=== PATIENT | male | born 1980 | race Caucasian/White ===

== ENCOUNTER 2016-06-01 11:39 | Emergency (ER) | payer OTHER ==
--- NOTE | 2016-06-01 12:23 | ED Physician Documentation ---
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 now para rectal discomfort epigastric pain disstress palp tenderness. Onset: hours (2) Timing: sudden onset Severity: mild, moderate - Associated Symptoms Description of Stools: constipation. denies: dark stools Abdominal Pain: cramping, aching, burning, mild, epigastric Other Related Symptoms: nausea, back pain - ROS CONST: no problems (as aforementioned) CVS/RESP: none GI/: problems urinating, other (urinary and fecal incontinence but occ constipation--wears depends) - PAST HX Past History: other (quad/paraplegia crush injury dec 2015--tree) - SOCIAL HX Smoking History: less than 1 pack/day Alcohol Use: none Drug Use: none - FAMILY HX Family History: none - VITAL SIGNS Vital Signs: Vital Signs Temp Pulse Resp BP Pulse Ox 97.7 F 83 16 128/88 97 06/01/16 11:58 06/01/16 11:58 06/01/16 11:58 06/01/16 11:58 06/01/16 11:58 - REVIEWED ASSESSMENTS Nursing Assessment Reviewed: Yes Vitals Reviewed: Yes ED Results Lab/Radiology - Radiology Radiology Impressions: abd\=xs feces asc trans and upper descending colon.(paraplegic). cxr=wnl - Orders Orders: ED Orders Category Date Time Status ABDOMEN WITH PA CHEST [ABD SERIES PA CHEST] [RAD] Stat Exams 06/01/16 Ordered Magnesium Hydroxide/Al Hydrox [Maalox] Med 06/01/16 12:20 Discontinued 60 ml PO NOW ONE Abdominal Pain Physical Exam - Physical Exam General Appearance: mild distress EENT: eye inspection normal NECK: normal inspection, thyroid normal, supple RESPIRATORY: no resp distress, chest non-tender, breath sounds normal CVS: reg rate & rhythm, heart sounds normal ABDOMEN: soft, tenderness (epigastric and suprapubic), abnormal bowel sounds RECTAL: normal rectal tone, other (no rectal prolapse found w exam finger-- marked tenderness on exam) SKIN: warm/dry, normal color. No: cyanosis, diaphoresis, jaundice EXTREMITIES: non-tender, normal range of motion (now walks w/significant limitation) NEURO: oriented X3, CN's nml as tested, mood/affect nml Vital Signs: Vital Signs Temp Pulse Resp BP Pulse Ox 97.7 F 83 16 128/88 97 06/01/16 11:58 06/01/16 11:58 06/01/16 11:58 06/01/16 11:58 06/01/16 11:58 Discharge Clincal Impression: ckonstipation w/hx rectal prolapse, paraplegic, chronic consstipation dt narcotic use Comments: pt may need surgical evaluation if prolapse recurs Condition: Good Disposition: 01 HOME, SELF-CARE Decision to Admit: NO Decision Time: 13:07
--- NOTE | 2016-06-01 18:29 | Diagnostic Imaging Report ---
[facility] [address] [facility].[address] [id number] Report Submission Date: Jun 01, 2016 1:06:30 PM MANAGER SOLAR Patient Study Name: NICOLE RUVALCABA Date: Jun 01, 2016 12:29:02 PM MANAGER SOLAR Modality Type: CR Gender: M Description: CHEST,ABDOMEN : 84 Institution: [facility] Physician: JAVI Johnston DO Obstructive series with chest x-ray CLINICAL HISTORY: Epigastric pain and constipation. Rectal prolapse. FINDINGS: Examination of the chest in single upright view demonstrates the lungs to be clear. Cardiovascular and mediastinal silhouettes are within normal limits. Thoracic spinal fusion hardware is demonstrated. Examination of the abdomen in supine and upright views demonstrates gas and stool in the colon. Psoas margins are well defined and the properitoneal fat lines are preserved. The visualized visceral silhouettes are within normal limits. There are no unusual intra- abdominal calcifications. IMPRESSION: Postop thoracic spinal stabilization. Normal bowel gas pattern. Electronically signed on Jun 01, 2016 1:06:30 PM MANAGER SOLAR by: Jagjit BUCIO
[2016-06-01] MEDS: MAGNESIUM HYDROXIDE/AL HYDROX 30 ML UDC PO ONE (19:18)
[2016-06-01 19:30] VITALS: BP 100/74
== END 2016-06-01 14:00 | disposition home or self-care (01) ==
LOC: ED 11:39
DX: K59.00 Constipation, unspecified (principal); K62.3 Rectal prolapse; G82.20 Paraplegia, unspecified
CPT/HCPCS: 74022; 99283

== ENCOUNTER 2016-06-06 15:05 | Emergency (ER) | payer OTHER ==
[2016-06-06 16:19] LABS: BASOPHILS % 0.4 (0.0-1.5); EOSINOPHILS % 1.7 % (0.0-6.8); LYMPHOCYTES # 1.3 # k/uL (0.6-4.0); MEAN CORPUSCULAR HEMOGLOBIN 29.2 pg (28.0-34.0); MONOCYTES # 0.3 # k/uL (0.0-0.9); MONOCYTES % 5.1 % (0.0-11.0); NEUTROPHILS # 4.2 # k/uL (1.4-7.7)
[2016-06-06 16:34] LABS: eGFR (African) > 60; eGFR (Non-African) > 60
--- NOTE | 2016-06-06 18:03 | ED Physician Documentation ---
GI Bleed - HISTORIAN Historian: patient, spouse - HPI Stated Complaint: constipation Chief Complaint: Rectal Pain Onset: days ago (7) Further Comments: yes (35 yo male presents with concern of constipation. has not had a good BM in 3 days. No fever/chills. Has the urge to have a BM but nothing productive happens. Reports he had a rectal prolapse 1 week ago that was manually reduced in the ER.) - Associated Symptoms Abdominal Pain: none - ROS CONST: no problems - PAST HX Past History: denies: bleeding disorder Allergies/Adverse Reactions: Allergies Allergy/AdvReac Type Severity Reaction Status Date / Time Penicillins Allergy Intermediate Hives Verified 06/01/16 13:13 - SOCIAL HX Smoking History: non-smoker - FAMILY HX Family History: none - VITAL SIGNS Vital Signs: Vital Signs Temp Pulse Resp BP Pulse Ox 98.1 F 101 H 16 112/77 97 06/06/16 15:10 06/06/16 15:10 06/06/16 15:10 06/06/16 15:10 06/06/16 15:10 - REVIEWED ASSESSMENTS Nursing Assessment Reviewed: Yes Vitals Reviewed: Yes ED Results Lab/Radiology - Lab Results Lab Results: Lab Results 06/06/16 06/06/16 16:15 16:15 WBC 6.00 K/ul K/ul (4.00-12.00) RBC 5.02 M/ul M/ul (3.90-5.20) Hgb 14.7 g/dL g/dL (12.0-18.0) Hct 44.5 % % (37.0-53.0) MCV 88.6 fl fl (80.0-100.0) MCH 29.2 pg pg (28.0-34.0) MCHC 33.0 g/dL g/dL (30.0-36.0) RDW 14.1 % % (11.3-14.3) Plt Count 250 K/mm3 K/mm3 (130-400) Neut % (Auto) 69.6 % % (39.0-79.0) Lymph % (Auto) 22.2 % % (16.0-50.0) [place] % (Auto) 5.1 % % (0.0-11.0) Eos % (Auto) 1.7 % % (0.0-6.8) Baso % (Auto) 0.4 (0.0-1.5) Neut # 4.2 # k/uL # k/uL (1.4-7.7) Lymph # 1.3 # k/uL # k/uL (0.6-4.0) [place] # 0.3 # k/uL # k/uL (0.0-0.9) Eos # 0.1 # k/uL # k/uL (0.0-0.6) Baso # 0.0 # k/uL # k/uL (0.0-0.5) Reactive Lymphs % 0.9 % % (0.0-5.0) Reactive Lymphs # 0.0 # k/uL # k/uL (0.0-0.8) Sodium 137 mmol/L mmol/L (136-145) Potassium 4.3 mmol/L mmol/L (3.5-5.0) Chloride 106 mmol/L mmol/L (98-110) Carbon Dioxide 29 mmol/L mmol/L (20-32) BUN 10 mg/dL mg/dL (10-26) Creatinine 0.8 mg/dL mg/dL (0.4-1.5) Estimated Creat Clear 113 Est GFR ( Amer) > 60 (60 - ) Est GFR (Non-Af Amer) > 60 (60 - ) Glucose 137 mg/dL H mg/dL (70-99) Calcium 9.2 mg/dL mg/dL (8.5-10.5) Total Bilirubin 0.3 mg/dL mg/dL (0.2-1.2) AST 14 U/L U/L (0-41) ALT 18 U/L U/L (0-45) Alkaline Phosphatase 76 U/L U/L (46-116) Total Protein 7.7 g/dL g/dL (6.0-8.5) Albumin 4.4 g/dL g/dL (3.0-5.5) - Radiology Radiology Impressions: CT abdomen and pelvis with contrast Date of study: June 06, 2016 CLINICAL HISTORY: ABD PAIN, POSSIBLE ILEUS (Hx) / ABD PAIN, POSSUIBLE ILEUS ( DICOM Hx) TECHNIQUE: 5 mm contiguous axial images of the abdomen and pelvis with IV contrast. With; 89 CC OMNIPAQUE FINDINGS: Lung bases are clear. The thoracic spine fusion changes are present. There is no lesion in the spleen or adrenal glands. A 5 mm hypodensity is present in the right lobe of the liver. The gallbladder and pancreas are unremarkable. Kidneys enhance normally. A large amount of retained fecal material is present in the colon. No abdominal or pelvic masses seen. The bladder is unremarkable.. There is no retroperitoneal or mesenteric mass. The appendix within normal limits. IMPRESSION: Large amount of retained fecal material distending the colon Nonspecific 5 mm hypodensity in the right lobe of the liver. Electronically signed on Jun 06, 2016 5:22:34 PM TECHNICAL INSPECTOR by: Ha Pike - Orders Orders: ED Orders Category Date Time Status ACUTE ABDOMINAL SERIES [ABD SERIES PA CHEST] [RAD] Stat Exams 06/06/[address] ABD & PELVIS W/ CON Stat Exams 06/06/16 Taken CBC/PLATELET/DIFF Routine Lab 06/06/16 16:15 Completed CMP [CMP] Routine Lab 06/06/16 16:15 Completed Abdominal Pain Physical Exam - Physical Exam General Appearance: no acute distress, alert EENT: eye inspection normal, ENT inspection normal, MI[place]IL NECK: normal inspection RESPIRATORY: no resp distress CVS: reg rate & rhythm ABDOMEN: soft, no organomegaly, normal bowel sounds, no abdominal bruit SKIN: warm/dry EXTREMITIES: non-tender NEURO: oriented X3 Vital Signs: Vital Signs Temp Pulse Resp BP Pulse Ox 98.1 F 101 H 16 112/77 97 06/06/16 15:10 06/06/16 15:10 06/06/16 15:10 06/06/16 15:10 06/06/16 15:10 Discharge Clincal Impression: Constipation Qualifiers: Constipation type: other constipation type Qualified Code(s): K59.09 - Other constipation Additional Instructions: Take Fleets enema when you get home Increase water intake Start fiber supplement daily Follow up with PCP this week Condition: Good Disposition: 01 HOME, SELF-CARE Decision to Admit: NO Decision Time: 18:04
[2016-06-06 18:44] VITALS: BP 101/59
--- NOTE | 2016-06-07 05:42 | Diagnostic Imaging Report ---
Report Submission Date: Jun 06, 2016 5:22:34 PM [place] MACHINE OPERATOR Patient ~ Study Name: RAQUEL SALAS ~ Date: Jun 06, 2016 4:55:15 PM [employer] MACHINE OPERATOR ~ Modality Type: CT\SR Gender: M ~ Description: CT ABD & PELVIS W/ CON : 84 ~ Institution: [facility] Physician: WILLIAM WANG ~ ~ ~ ~ CT abdomen and pelvis with contrast Date of study: June 06, 2016 CLINICAL HISTORY:~ ABD PAIN, POSSIBLE ILEUS (Hx) / ABD PAIN, POSSUIBLE ILEUS ( DICOM Hx) TECHNIQUE: 5 mm contiguous axial images of the abdomen and pelvis with IV contrast.~~ With ; 89 CC OMNIPAQUE ~~ FINDINGS: Lung bases are clear. The thoracic spine fusion changes are present. There is no lesion in the spleen or adrenal glands. A 5 mm hypodensity is present in the right lobe of the liver. The gallbladder and pancreas are unremarkable. Kidneys enhance normally. A large amount of retained fecal material is present in the colon. No abdominal or pelvic masses seen. The bladder is unremarkable.. There is no retroperitoneal or mesenteric mass. The appendix within normal limits. IMPRESSION: Large amount of retained fecal material distending the colon Nonspecific 5 mm hypodensity in the right lobe of the liver. ~ Electronically signed on Jun 06, 2016 5:22:34 PM [place] MACHINE OPERATOR by: Ha BUCIO
--- NOTE | 2016-06-07 05:48 | Diagnostic Imaging Report ---
Report Submission Date: Jun 06, 2016 3:49:32 PM AIRPLANE PILOT SUPERVISOR Patient ~ Study Name: RAQUEL SALAS ~ Date: Jun 06, 2016 3:28:26 PM AIRPLANE PILOT SUPERVISOR ~ Modality Type: CR Gender: M ~ Description: CHEST,ABDOMEN : 84 ~ Institution: [facility] Physician: WILLIAM WANG ~ ~ ~ ~ Obstructive series with chest x-ray CLINICAL HISTORY: ~ Constipation for 1 week. ~Rectal prolapse. FINDINGS: ~ Examination of the chest in single upright view demonstrates postoperative changes with spinal stabilization hardware in the mid and lower thoracic spine. ~The lungs are clear. ~Cardiovascular and mediastinal silhouettes are within normal limits. ~ Examination of the abdomen in supine and upright views demonstrates gas and stool in the colon. ~There is increased small bowel and large bowel gas, but no differential dilatation or bowel distention to suggest obstruction. ~There is no free air. ~Properitoneal fat lines are preserved. ~The visualized visceral silhouettes are within normal limits. IMPRESSION: ~ Increased small large bowel gas without differential dilatation to suggest obstruction. ~Findings are consistent with ileus. ~ Postoperative changes in the thoracic spine. ~ Electronically signed on Jun 06, 2016 3:49:32 PM AIRPLANE PILOT SUPERVISOR by: Jagjit BUCIO
== END 2016-06-06 18:18 | disposition home or self-care (01) ==
LOC: ED 15:05
DX: K59.09 Other constipation (principal)
CPT/HCPCS: 74022; 74177; 80053; 85025; Q9966; 99283; S1016